=== PATIENT | male | born 1970 ===

== ENCOUNTER 2021-11-27 23:10 | Emergency (ER) | payer SELFPAY ==
[~2021-11-27] VITALS: Ht 172.7 cm; Wt 79.0 kg
[2021-11-27 23:17] VITALS: BP 133/83
[2021-11-27 23:30] VITALS: BP 130/79
[2021-11-27] MEDS ORDERED: METFORMIN HCL500 M2 PO (23:32)
[2021-11-27] MEDS ORDERED: LISINOPRIL2.5 MG PO (23:32)
[2021-11-27 23:53] LABS: HEMATOCRIT 47.8 % (39.0-50.0); IMMATURE GRANULOCYTES 0.3 % (0.0-5.0); MEAN CELL VOLUME 95.2 fL CALC (80.0-100.0); MEAN CORPUSCULAR HGB 31.9 pG CALC (26.0-32.0); MEAN CORPUSCULAR HGB CONC 33.5 g/dL CAL (32.0-36.0); NEUT# 8.35 thou/uL (1.82-7.42); RED BLOOD COUNT 5.02 mill/uL (4.70-6.10); RED CELL DISTRI WIDTH 12.3 % (11.5-15.5)
[2021-11-27 23:55] LABS: URINE BILIRUBIN - DIPSTICK NEGATIVE (NEGATIVE); URINE BLOOD DIPSTICK NEGATIVE (NEGATIVE); URINE CLARITY CLEAR; URINE COLOR YELLOW; URINE GLUCOSE - DIPSTICK >=1000 mg/dL (NEGATIVE); URINE KETONE NEGATIVE (NEGATIVE); URINE LEUK ESTERASE NEGATIVE (Negative); URINE NITRITE - DIPSTICK NEGATIVE (Negative); URINE PH 5.5 (4.5-8.0); URINE PROTEIN - DIPSTICK NEGATIVE (NEG-TRACE); URINE UROBILINOGEN - DIPSTICK 0.2 E.U./dL (0.2)
[2021-11-28 00:14] LABS: ALBUMIN 4.2 g/dL (3.2-5.0); ALKALINE PHOSPHATASE 85 u/l (38-126); ANION GAP 16 (6-22 (CALC)); BILIRUBIN, TOTAL 0.6 mg/dL (0.0-1.4); BUN 15 mg/dL (9-20); BUN/CREATININE RATIO 27 (12-20 (CALC)); CARBON DIOXIDE 22 mmol/l (22-30); CHLORIDE 99 mmol/l (95-108); CREATININE 0.6 mg/dL (0.7-1.3); GFR > 60 ML/MIN (>=60 (CALC)); GFR FOR AFR.AMER. > 60 ML/MIN (>=60 (CALC)); POTASSIUM 4.6 mmol/l (3.5-5.1); SGOT/AST 31 u/l (17-59); SODIUM 133 mmol/l (137-146); TOTAL PROTEIN 6.8 g/dL (6.3-8.2)
[2021-11-28 00:39] VITALS: BP 121/74
[2021-11-28 01:00] VITALS: BP 116/72
[2021-11-28 01:19] VITALS: BP 116/72
== END 2021-11-28 01:25 | disposition home or self-care (01) | DRG 605 ==
LOC: ED 23:10
PROVIDERS: Family Medicine
DX: S40.212A Abrasion of left shoulder, initial encounter (principal); S50.812A Abrasion of left forearm, initial encounter; S00.81XA Abrasion of other part of head, initial encounter; T14.8XXA Other injury of unspecified body region, initial encounter; E11.65 Type 2 diabetes mellitus with hyperglycemia; V43.52XA Car driver injured in collision with other type car in traffic accident, initial encounter; Z79.84 Long term (current) use of oral hypoglycemic drugs